=== PATIENT | female | born 1950 | race Two or more races ===

== ENCOUNTER 2020-06-22 13:36 | Outpatient (CLI) | payer OTHER | END 2020-06-22 16:54 | disposition home or self-care (01) | LOC: OFIC 805 13:36 | PROVIDERS: ATTEND Otolaryngology Otology & Neurotology | DX: R04.0 Epistaxis (principal); J31.0 Chronic rhinitis ==

== ENCOUNTER 2020-07-01 11:27 | Outpatient (CLI) | payer OTHER | END 2020-07-01 12:40 | disposition home or self-care (01) | LOC: OFIC 805 11:27 | PROVIDERS: ATTEND Otolaryngology Otology & Neurotology | DX: R04.0 Epistaxis (principal); J31.0 Chronic rhinitis ==